=== PATIENT | female | born 1940 | race Caucasian/White ===

== ENCOUNTER 2018-08-24 11:07 | Emergency (ER) | payer OTHER ==
[~2018-08-24] VITALS: Ht 160 cm; Wt 54.4 kg
== END 2018-08-24 11:59 | disposition home or self-care (01) ==
LOC: ER 11:07
DX: S86.812A Strain of other muscle(s) and tendon(s) at lower leg level, left leg, initial encounter (principal); S76.012A Strain of muscle, fascia and tendon of left hip, initial encounter; X50.0XXA Overexertion from strenuous movement or load, initial encounter; Y93.01 Activity, walking, marching and hiking; Y92.89 Other specified places as the place of occurrence of the external cause; Y99.8 Other external cause status

== ENCOUNTER 2018-10-13 07:47 | Outpatient (CLI) | payer OTHER | END 2018-10-13 08:02 | disposition home or self-care (01) | LOC: RAD 07:47 | DX: J45.998 Other asthma (principal) ==

== ENCOUNTER → 2018-10-26 | Outpatient (CLI) | payer OTHER | END | disposition home or self-care (01) | LOC: MAMO-SONO 13:15 → SONOGRAMA 13:59 | DX: E03.8 Other specified hypothyroidism (principal); E04.2 Nontoxic multinodular goiter; R19.00 Intra-abdominal and pelvic swelling, mass and lump, unspecified site ==

== ENCOUNTER → 2019-04-25 | Outpatient (CLI) | payer OTHER | END | disposition home or self-care (01) | LOC: RAD 15:11 | DX: M17.0 Bilateral primary osteoarthritis of knee (principal); M06.871 Other specified rheumatoid arthritis, right ankle and foot ==

== ENCOUNTER 2021-11-13 11:08 | Outpatient (CLI) | payer OTHER | END 2021-11-13 11:13 | disposition home or self-care (01) | LOC: RAD 11:08 | PROVIDERS: ATTEND Internal Medicine | DX: R06.9 Unspecified abnormalities of breathing (principal) ==

== ENCOUNTER 2021-11-21 06:18 | Outpatient (CLI) | payer OTHER | END 2021-11-21 06:24 | disposition home or self-care (01) | LOC: LAB 06:18 | PROVIDERS: ATTEND Internal Medicine | DX: R06.9 Unspecified abnormalities of breathing (principal); Z13.1 Encounter for screening for diabetes mellitus; Z13.220 Encounter for screening for lipoid disorders; Z13.29 Encounter for screening for other suspected endocrine disorder; E55.9 Vitamin D deficiency, unspecified; Z12.11 Encounter for screening for malignant neoplasm of colon ==

== ENCOUNTER 2022-01-31 10:47 | Outpatient (CLI) | payer OTHER | END 2022-01-31 11:38 | disposition home or self-care (01) | LOC: LAB 10:47 | PROVIDERS: ATTEND Internal Medicine | DX: E03.9 Hypothyroidism, unspecified (principal); R06.9 Unspecified abnormalities of breathing; D64.9 Anemia, unspecified; E11.9 Type 2 diabetes mellitus without complications; Z83.3 Family history of diabetes mellitus ==

== ENCOUNTER 2022-02-15 06:58 | Emergency (ER) | payer OTHER ==
[~2022-02-15] VITALS: Ht 157.5 cm; Wt 61.2 kg
== END 2022-02-15 09:28 | disposition home or self-care (01) ==
LOC: ER 06:58
DX: M25.521 Pain in right elbow (principal)